=== PATIENT | male | born 2000 | race Caucasian/White ===

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

== ENCOUNTER 2022-01-03 22:06 | Emergency (ER) | payer OTHER ==
[2022-01-03 22:25] VITALS: BP 137/78; PULSE 98; RESP 18; TEMP 98.2
--- NOTE | 2022-01-03 23:07 | XR ---
EXAMINATION TYPE: XR foot complete RT DATE OF EXAM: 01/03/2022 COMPARISON: NONE HISTORY: Pain TECHNIQUE: 3 views FINDINGS: Metatarsals are intact. The toes appear intact. I see no fracture nor dislocation. Joint sp aces are fairly normal. IMPRESSION: Negative right foot exam. No fracture seen.
--- NOTE | 2022-01-03 23:07 | XR ---
EXAMINATION TYPE: XR ankle complete RT DATE OF EXAM: 01/03/2022 COMPARISON: 04/02/2020 HISTORY: Pain TECHNIQUE: FINDINGS: There is soft tissue swelling over the lateral malleolus. Ankle mortise is anatomic. Joint spaces are normal. IMPRESSION: Soft tissue swelling. No fracture. Soft tissue swelling is new compared to the old exam.
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
== END 2022-01-03 23:30 | disposition home or self-care (01) ==
LOC: EC 22:06
DX: S99.911A Unspecified injury of right ankle, initial encounter (principal)
CPT/HCPCS: 73610; 73630; L4350

== ENCOUNTER → 2024-01-06 | Outpatient (CLI) | payer OTHER ==
[2024-01-06 16:32] VITALS: BP 135/87; PULSE 92; RESP 16; TEMP 98.3
--- NOTE | 2024-01-06 16:40 | P.SLEEP ---
History of Present Illness DATE: 04/07/2024 CONSULTATION/NEW PATIENT EVALUATION HISTORY OF PRESENT ILLNESS/SLEEP-WAKE EVALUATION: 23-year-old gentleman had b een evaluated in the sleep center for possible obstructive sleep apnea hypopnea syndrome. SLEEP SCHEDULE: Usually sleep schedule 10:30 PM to 6:30 AM on working days and from midnight until 9 AM on weekend. FALLING ASLEEP: No problems with falling asleep. DURING SLEEP: Patient denied snoring. He wakes up from sleep once with nocturia. Patient sleeps on the side position, prefers not to sleep on the back position. No history of hypnogogical hallucinations, sleep paralysis, or cataplexy. DURING THE DAY/WAKE STATE: Patient denied any significant excessive daytime sleepiness. [place] sleepiness scale is 2 . Patient may take 1 nap after 6 PM. PAST MEDICAL HISTORY: Hypertension. PAST SURGICAL HISTORY: None. MEDICATIONS: Lisinopril 20 mg once a day. SOCIAL HISTORY: Please see below. FAMILY HISTORY: Please see below. REVIEW OF SYSTEMS: . No fevers. No double vision. No recent chest pain. No shortness of breath. No abdominal pain. No bleeding episodes. No blood in urine. No seizure episodes. PHYSICAL EXAMINATION: GENERAL: A pleasant patient without any distress. VITAL SIGNS: Please see below, weight 234.2 pounds, BMI 38.1. HEENT: PERRLA, EOMI. Evaluation of oropharynx showed tongue protrudes midline, low position of soft palate Mallampati 4. NECK: Supple. No JVD. Thyroid is not palpable. 19 inches in circumference. LUNGS: Clear to percussion and to auscultation. Good air exchange. No wheezing or rhonchi. HEART: S1, S2 regular. No murmurs, gallops or rubs. ABDOMEN: Soft and nontender. Bowel sounds are present. No organomegaly appreciated. EXTREMITIES: No clubbing or cyanosis. INSURANCE CLAIMS EXAMINER: Awake, alert, and oriented x3. Cranial nerves 2 to 7 intact. There is no fasciculation or atrophy noted. No focal deficits observed. ASSESSMENT: 1. Awakenings from sleep with nocturia. Extremely low position of soft palate Mallampati 4, wide neck 19 inches in circumference. Obstructive sleep apnea hypopnea syndrome. 2. Hypertension. 3. Obesity, BMI 38.1. 4. local company truck driver. PLAN: 1. Polysomnography for evaluation of patient's breathing during sleep. 2. Following plan after reading sleep study. 3. Preferable position during sleep on the side. 4. No driving if patient feels any sleepiness. Patient is aware of civil and criminal liability for unsafe driving. 5. Sleep hygiene with regular sleep time for at least 7.5-8 hours. 6. Watching and losing weight. Thank you very much for referring this patient for consultation. Sincerely, Arpan Lewis MD, PhD, FAASM. Diplomat of [employer], Sleep Medicine Board by [employer] [employer] [facility] Past Medical History Past Medical History: Hypertension, Skin Disorder Additional Past Medical History / Comment(s): HEALING FROM [place]. ENLARGED TONSILS, ADENOIDS; ONGOING STREP INFECTIONS. SEASONAL ALLERGIES. wAS ON ANXIETY MED - GOT COUNSELING, NO LONGER ON THAT MED. History of Any Multi-Drug Resistant Organisms: None Reported Past Surgical History: Adenoidectomy, Ear Surgery, Tonsillectomy Additional Past Surgical History / Comment(s): HYDROCELE REPAIR. REPAIR INJURY TO ORAL TRAUMA. BMT. R TOP OF FOOT FX IN THE PAST - NO SURGERY OR CAST. Past Anesthesia/Blood Transfusion Reactions: No Reported Reaction, Motion Sickness Past Psychological History: ADD/ADHD Additional Psychological History / Comment(s): ANIXIETY ISSUE IN THE PAST, WAS ON MEDICINE, GOT COUNSELING AND NO LONGER ON MED. Smoking Status: Never smoker Past Alcohol Use History: None Reported, Occasional Additional Past Alcohol Use History / Comment(s): 3 - 4 TIMES A WEEK. Past Drug Use History: None Reported - Past Family History Mother Family Medical History: No Reported History, Hypertension Additional Family Medical History / Comment(s): SPECIAL NEEDS - SISTER Medications and Allergies Home Medications Medication Instructions Recorded Confirmed Type Amoxicillin 500 mg PO Q8HR #300 ml 04/01/17 Rx Famotidine [Pepcid] 40 mg PO BID 30 Days tab 04/01/17 Rx Hydrocodone/Acetaminophen [[place] 1 - 2 each PO Q6HR PRN #50 tab 04/01/17 Rx 5-325] Ibuprofen [Motrin] 600 mg PO Q6HR PRN #60 tab 04/01/17 Rx Lidocaine Viscous [Xylocaine 5 ml PO RT-Q1H PRN #300 ml 08/24/17 Rx Viscous 2%] predniSONE [Deltasone] 20 mg PO DIRECTED #9 tab 04/01/17 Rx lisinopriL [Prinivil] 20 mg PO DAILY 01/06/24 01/06/24 History Allergies Allergy/AdvReac Type Severity Reaction Status Date / Time No Known Allergies Allergy Verified 03/26/17 09:50 Physical Exam Vitals: Vital Signs Temp Pulse Resp BP Pulse Ox 01/06/24 16:04 98.3 F 92 16 135/87 100 Intake and Output 01/06/24 01/06/24 01/06/24 06:59 14:59 22:59 Other: Weight 106.197 kg Sleep Note - Sleep Data ESS Total: 2 - Sleep Note Sleep Note: Temperature: 98.3 F Pulse Rate: 92 Respiratory Rate: 16 Blood Pressure: 135/87 SpO2: 100 Height: 5 ft 5.7 in Weight: 106.197 kg BMI: Neck Circumference: 19
== END ==
LOC: 3 N SLEEP 15:34
PROVIDERS: ATTEND Internal Medicine
DX: G47.33 Obstructive sleep apnea (adult) (pediatric) (principal); I10 Essential (primary) hypertension; E66.9 Obesity, unspecified; Z68.38 Body mass index [BMI] 38.0-38.9, adult; Z79.899 Other long term (current) drug therapy
CPT/HCPCS: 99211

== ENCOUNTER → 2024-02-08 | Outpatient (CLI) | payer BC, OTHER ==
--- NOTE | 2024-02-09 18:06 | P.PCN ---
Description of Procedure: CLINICAL: A home sleep apnea test has been done for confirmation of possible obstructive sleep apnea-hypopnea syndrome. DESCRIPTION OF PROCEDURE: RESULTS: Recording time was 8 hours 5 minutes. Evaluation time was 7 hours 54 minutes. Evaluation time is sufficient for making conclusion about results of the test. Raw data of sleep recording has been reviewed and is adequate. Respiratory channel showed 5 apneas and 14 hypopneas. Apnea-hypopnea index was 2.4 per hour. Pulse rate in the range between minimum 56, maximum 117, average 76 by computer calculation. Lowest desaturation was 87%. IMPRESSION: 1. No significant respiratory abnormalities have been documented during the home sleep study. 2. Some snoring have been documented. Please see other impressions from consultation. PLAN: 1. Sleep hygiene with regular time in bed for at least 8 hours.. 2. I will see patient for follow up visit to discuss results of the test, evaluate clinical response on treatment with PAP therapy and make any necessary adjustments related to mask fitting, pressure, and humidification. 3. Watching and losing weight. 4. No driving if feeling any sleepiness. Patient is aware about civil and criminal liability for unsafe driving. 5. Peripheral position during the sleep is on the side. Thank you very much for allowing me to participate in the management of your patient. Sincerely, Arpan Lewis MD, PhD, FAASM Diplomat of [employer] Sleep Medicine Board of [employer] [facility] [place] Daniel Quinones Jr, DO
== END ==
LOC: 3 N SLEEP 17:06
PROVIDERS: ATTEND Internal Medicine
DX: G47.33 Obstructive sleep apnea (adult) (pediatric) (principal); I10 Essential (primary) hypertension; E66.9 Obesity, unspecified; R35.1 Nocturia; Z68.38 Body mass index [BMI] 38.0-38.9, adult; Z79.899 Other long term (current) drug therapy